=== PATIENT | male | born 1985 | race American Indian/Alaskan Native ===

== ENCOUNTER 2020-01-16 20:06 | Emergency (ER) | payer SELFPAY ==
[2020-01-16 21:38] LABS: Basophils # (Auto) 0.1 K/mm3 (0.0-0.1); Basophils % (Auto) 0.5 % (0.0-1.8); Eosinophils # (Auto) 0.2 K/mm3 (0.0-0.4); Eosinophils % (Auto) 1.4 % (0.0-4.3); Hematocrit 46.2 % (35.5-45.6); Hemoglobin 14.9 gm/dl (11.8-15.2); Lymphocytes % (Auto) 17.8 % (13.4-35.0); Mean Corpuscular HGB Conc 32 % (32-34); Mean Corpuscular Volume 82 fl (84-94); Monocytes # (Auto) 0.9 K/mm3 (0.0-0.8); Monocytes % (Auto) 8.1 % (0.0-7.3); Platelet Count 366 K/mm3 (140-440); Red Blood Count 5.65 M/mm3 (3.65-5.03); Red Cell Distribution Width 14.4 % (13.2-15.2)
[2020-01-16 21:51] LABS: Alanine Aminotransferase 35 units/L (7-56); Albumin 3.9 g/dL (3.9-5); BUN/Creatinine Ratio 8; Blood Urea Nitrogen 8 mg/dL (9-20); Calcium 9.6 mg/dL (8.4-10.2); Hemolysis Index 21
[2020-01-16] MEDS ORDERED: CLINDAMYCIN 600 MG/50 mL 600 MG/50 ML BAG IV ONE (22:32)
[2020-01-16] MEDS ORDERED: oxyCODONE /ACETAMINOPHEN 5-325MG TAB PO ONE (22:32)
[2020-01-16] MEDS ORDERED: SODIUM CHLORIDE 0.9% IRR 500 ML BOTTLE IR ONE (22:45)
[2020-01-16] MEDS ORDERED: SODIUM CHLORIDE 0.9% 1000 ML 1,000 ML IV ONE (22:55)
--- NOTE | 2020-01-16 23:23 | Emergency Department Report ---
Abscess Boil HPI - HPI Chief Complaint: Skin/Abscess/Foreign Body Stated Complaint: FACIAL SWELLING, PAIN Time Seen by Provider: 01/16/20 22:31 Duration: 2 Days Location: Other Severity: Moderate (Face) History: Yes Pain, No Fever, No Purulent Drainage, No Numbness, No Foreign Body, No Previous History, No Insect Bite HPI: 34-year-old -[place] male presents to the emergency room for left- sided facial swelling that started with a small pimple and then has grown in 2 a large size bump with redness and irritated for about 1-1/2 days. Patient states he thinks he was bitten by an insect. Patient reports that it is painful. Patient reports a past medical history of HIV. It was noted that patient had a low-grade temperature of 99.0 and comes in tachycardic at 122. Patient has no other complaints. Home Medications: Previous Rx's Medication Instructions Recorded Last Taken Type DOXYCYCLINE Hyclate [Vibramycin 100 mg PO BID #14 capsule 02/17/15 Unknown Rx CAP] Amoxicillin [Amoxicillin TAB] 875 mg PO BID 10 Days #20 tablet 01/16/20 Unknown Rx Clindamycin [Clindamycin CAP] 300 mg PO Q8H 10 Days #30 cap 01/16/20 Unknown Rx traMADoL [Ultram 50 MG tab] 50 mg PO Q6HR PRN #12 tablet 01/16/20 Unknown Rx Allergies/Adverse Reactions: Allergies Allergy/AdvReac Type Severity Reaction Status Date / Time No Known Allergies Allergy Unverified 02/17/15 02:26 ED Review of Systems ROS: Stated complaint: FACIAL SWELLING, PAIN Other details as noted in HPI Comment: All other systems reviewed and negative ED Past Medical Hx - Past Medical History Previous Medical History?: Yes Additional medical history: HIV - Surgical History Past Surgical History?: No - Social History Smoking Status: Current Every Day Smoker Substance Use Type: Alcohol, Cocaine, Heroin, Marijuana, Methamphetamines - Medications Home Medications: Home Medications Medication Instructions Recorded Confirmed Last Taken Type DOXYCYCLINE Hyclate [Vibramycin 100 mg PO BID #14 capsule 02/17/15 Unknown Rx CAP] Amoxicillin [Amoxicillin TAB] 875 mg PO BID 10 Days #20 tablet 01/16/20 Unknown Rx Clindamycin [Clindamycin CAP] 300 mg PO Q8H 10 Days #30 cap 01/16/20 Unknown Rx traMADoL [Ultram 50 MG tab] 50 mg PO Q6HR PRN #12 tablet 01/16/20 Unknown Rx ED Abscess Boil Physical Exam - Exam General: Vital signs noted. No distress. Alert and acting appropriately. Left side facial involving the left lip left cheek and portion of the left chin. Tenderness to palpate erythematous edematous. Size: >5 cm Exam: Yes Tenderness, Yes Surrounding Cellulites/Erythema, Yes Normal Neurologic Exam, Yes Normal Circulation, No Fluctuance, No Lymphangitis, No Crepitation, No Heart Murmur ED Course Vital Signs 01/16/20 01/16/20 20:47 20:55 Temperature 99.0 F Pulse Rate 122 H Respiratory 18 Rate Blood Pressure 134/86 O2 Sat by Pulse 100 Oximetry Critical care attestation.: If time is entered above; I have spent that time in minutes in the direct care of this critically ill patient, excluding procedure time. ED Medical Decision Making - Lab Data Result diagrams: 01/16/20 21:25 01/16/20 21:25 - Medical Decision Making 34-year-old -[place] male presents to the emergency room for left-sided facial swelling that started with a small pimple and then has grown in 2 a large size bump with redness and irritated for about 1-1/2 days. Patient states he thinks he was bitten by an insect. Patient reports that it is painful. Patient reports a past medical history of HIV. It was noted that patient had a low- grade temperature of 99.0 and comes in tachycardic at 122. Patient has no other complaints. Spoke with Dr. talbert as well as he evaluated the patient. Dr. talbert he agrees with my plan of basic labs with a lactic acid. IV normal saline with clindamycin 600 mg IV. Pain medication. Will discharge patient home on cli ndamycin 300 mg every 8 hours for 10 days as well as amoxicillin 875 mg twice daily for 10 days. Patient is to follow-up with a primary care provider I will refer patient to Dr. Brynn Kline or [facility]. ED Disposition Clinical Impression: Abscess of face, HIV (human immunodeficiency virus infection) Disposition: TO HOME OR SELFCARE Is pt being admited?: No Does the pt Need Aspirin: No Condition: Stable Instructions: Abscess (ED) Additional Instructions: Complete your antibiotics as prescribed. Pain medication as needed. Increase your fluid intake. Tylenol or ibuprofen for fever. Follow-up with a primary care provider I have listed several below for your convenience. Return back to the emergency room with worsening symptoms Prescriptions: Amoxicillin [Amoxicillin TAB] 875 mg PO BID 10 Days #20 tablet Clindamycin [Clindamycin CAP] 300 mg PO Q8H 10 Days #30 cap traMADoL [Ultram 50 MG tab] 50 mg PO Q6HR PRN #12 tablet PRN Reason: Pain [facility] STEVE [Primary Care Provider] - 3-5 Days FIDEL GERBER MD [Staff Physician] - 3-5 Days [facility] [Provider Group] - 3-5 Days Forms: Work/School Release Form(ED)
[2020-01-17 00:10] VITALS: BP 114/87
== END 2020-01-17 00:10 | disposition home or self-care (01) ==
LOC: ED 20:06
DX: L02.01 Cutaneous abscess of face (principal); B20 Human immunodeficiency virus [HIV] disease; F17.200 Nicotine dependence, unspecified, uncomplicated; F12.90 Cannabis use, unspecified, uncomplicated; F14.90 Cocaine use, unspecified, uncomplicated; F11.90 Opioid use, unspecified, uncomplicated; F15.90 Other stimulant use, unspecified, uncomplicated; Z79.899 Other long term (current) drug therapy
CPT/HCPCS: 36415; 80053; 82140; 85025; 87040; 96365; 99283; J7030

== ENCOUNTER 2021-05-13 10:26 | Emergency (ER) | payer SELFPAY ==
[2021-05-13 10:53] VITALS: BP 149/106
[2021-05-13] MEDS ORDERED: HYDROcodone/ACETAMINOPHEN 5-325 MG TAB PO ONE (11:32)
[2021-05-13] MEDS ORDERED: LIDOCAINE (1%) 10 MG/1 ML VIAL 20 ML MDV INFILTRATI ONE (11:32)
--- NOTE | 2021-05-13 11:33 | Emergency Department Report ---
ED General Adult HPI - General Chief complaint: Extremity Injury, Upper Stated complaint: LT HAND FINGER INFECTED Time Seen by Provider: 05/13/21 11:17 Source: patient Mode of arrival: Ambulatory Limitations: No Limitations - History of Present Illness Initial comments: 35-year-old -[place] male patient presents with complaints of left middle finger pain and swelling x1 week. He denies any specific injuries or fever/chills/sweats. No difficulty moving the finger per patient. He does admit to being a nail biter. No past medical history per patient. Patient rates his pain as a 10/10 in severity - Related Data Previous Rx's Medication Instructions Recorded Last Taken Type DOXYCYCLINE Hyclate [Vibramycin 100 mg PO BID #14 capsule 02/17/15 Unknown Rx CAP] Amoxicillin [Amoxicillin TAB] 875 mg PO BID 10 Days #20 tablet 01/16/20 Unknown Rx Clindamycin [Clindamycin CAP] 300 mg PO Q8H 10 Days #30 cap 01/16/20 Unknown Rx traMADoL [Ultram 50 MG tab] 50 mg PO Q6HR PRN #12 tablet 01/16/20 Unknown Rx Ibuprofen [Motrin 800 MG tab] 800 mg PO Q8HR PRN #20 tablet 05/13/21 Unknown Rx Mupirocin [Bactroban 2% OINT] 1 applic TP TID 10 Days #1 tube 05/13/21 Unknown Rx Sulfamethoxazole/Trimethoprim 1 each PO BID 10 Days #20 tablet 05/13/21 Unknown Rx [Bactrim DS TAB] Allergies Allergy/AdvReac Type Severity Reaction Status Date / Time No Known Allergies Allergy Verified 05/13/21 10:54 ED Review of Systems ROS: Stated complaint: LT HAND FINGER INFECTED Other details as noted in HPI Constitutional: denies: chills, diaphoresis, fever, weakness Musculoskeletal: other (Swelling of the finger) Skin: change in color Neurological: denies: numbness, paresthesias ED Past Medical Hx - Past Medical History Hx HIV: Yes Additional medical history: HIV - Social History Smoking Status: Never Smoker Substance Use Type: None - Medications Home Medications: Home Medications Medication Instructions Recorded Confirmed Last Taken Type DOXYCYCLINE Hyclate [Vibramycin 100 mg PO BID #14 capsule 02/17/15 Unknown Rx CAP] Amoxicillin [Amoxicillin TAB] 875 mg PO BID 10 Days #20 tablet 01/16/20 Unknown Rx Clindamycin [Clindamycin CAP] 300 mg PO Q8H 10 Days #30 cap 01/16/20 Unknown Rx traMADoL [Ultram 50 MG tab] 50 mg PO Q6HR PRN #12 tablet 01/16/20 Unknown Rx Ibuprofen [Motrin 800 MG tab] 800 mg PO Q8HR PRN #20 tablet 05/13/21 Unknown Rx Mupirocin [Bactroban 2% OINT] 1 applic TP TID 10 Days #1 tube 05/13/21 Unknown Rx Sulfamethoxazole/Trimethoprim 1 each PO BID 10 Days #20 tablet 05/13/21 Unknown Rx [Bactrim DS TAB] ED Physical Exam - General Limitations: No Limitations General appearance: alert, in no apparent distress - Head Head exam: Present: atraumatic, normocephalic - Eye Eye exam: Absent: scleral icterus - Respiratory Respiratory exam: Absent: respiratory distress - Extremities Exam Extremities exam: Present: other (Paronychia noted to distal aspect of left third digit with moderate swelling; normal perfusion and sensation and range of motion of the fingers noted) - Neurological Exam Neurological exam: Present: alert, oriented X3 - Psychiatric Psychiatric exam: Present: normal affect, normal mood - Skin Skin exam: Present: warm, dry, intact. Absent: rash ED Course Vital Signs 05/13/21 10:52 Temperature 98.0 F Pulse Rate 105 H Respiratory 17 Rate Blood Pressure 149/106 O2 Sat by Pulse 99 Oximetry - I & D Finger Type of Procedure: Simple Site: Left third digit Blade Size: 11 I & D Procedure: betadine prep, sterile drapes applied, sterile dressing applied Progress: 8 cc of lidocaine 1% without epi used to digitally block the left third digit. Mild purulent drainage obtained from wound. Patient tolerated procedure well without any immediate complications. He has full range of motion and normal perfusion of the finger post procedure ED Medical Decision Making - Medical Decision Making 35-year-old -[place] male patient presents with complaints of left middle finger pain and swelling x1 week. He denies any specific injuries or fever/chills/sweats. No difficulty moving the finger per patient. He does admit to being a nail biter. No past medical history per patient. Patient rates his pain as a 10/10 in severity Incision and drainage of paronychia performed. Patient tolerated procedure well without any immediate complications. Heart rate now 89 upon repeat. His vitals are normal, he is well-appearing, he is stable for discharge home. Discussed wound care and signs and symptoms that should prompt immediate return to the emergency department in detail patient verbalized understanding. Prescription for Bactrim and mupirocin given. Patient to follow-up with his primary care doctor in 3 to 5 days. Critical care attestation.: If time is entered above; I have spent that time in minutes in the direct care of this critically ill patient, excluding procedure time. ED Disposition Clinical Impression: Paronychia of finger Qualifiers: Laterality: left Qualified Code(s): L03.012 - Cellulitis of left finger Disposition: HOME / SELF CARE / HOMELESS Is pt being admited?: No Condition: Stable Instructions: Paronychia Prescriptions: Sulfamethoxazole/Trimethoprim [Bactrim DS TAB] 1 each PO BID 10 Days #20 tablet Mupirocin [Bactroban 2% OINT] 1 applic TP TID 10 Days #1 tube Ibuprofen [Motrin 800 MG tab] 800 mg PO Q8HR PRN #20 tablet PRN Reason: pain Referrals: [facility] [Provider Group] - 3-5 Days Forms: Work/School Release Form(ED)
== END 2021-05-13 14:09 | disposition home or self-care (01) ==
LOC: ED 10:26
DX: L03.012 Cellulitis of left finger (principal); Z79.899 Other long term (current) drug therapy
CPT/HCPCS: 99282

== ENCOUNTER 2022-03-26 06:08 | Emergency (ER) | payer SELFPAY ==
--- NOTE | 2022-03-26 13:06 | Emergency Department Report ---
HPI - General Chief Complaint: Psych Time Seen by Provider: 03/26/22 12:55 - HPI HPI: Room 12 The patient is a 36-year-old male present with chief complaint of suicidal ideation. Patient reportedly told staff that he was homeless and has been off his bipolar medication for the past week. Patient admitted to having suicidal ideation. Patient denies any active attempts at harming himself. ED Past Medical Hx - Past Medical History Hx Psychiatric Treatment: Yes (Bipolar disorder) Hx HIV: Yes (Unknown CD4 count) Additional medical history: HIV - Surgical History Past Surgical History?: No Additional Surgical History: urethra sx - Family History Family history: no significant - Social History Smoking Status: Never Smoker Substance Use Type: Alcohol (Rarely), Marijuana ED Review of Systems ROS: Stated complaint: MH Other details as noted in HPI Constitutional: no symptoms reported Eyes: denies: eye pain ENT: denies: throat pain Respiratory: no symptoms reported Cardiovascular: denies: chest pain Endocrine: no symptoms reported Gastrointestinal: denies: abdominal pain Genitourinary: denies: dysuria Musculoskeletal: denies: back pain Psychiatric: suicidal thoughts Physical Exam - Physical Exam Vital Signs: Vital Signs 03/26/22 08:19 Temperature 98.9 F Pulse Rate 81 Respiratory 14 Rate Blood Pressure 127/86 O2 Sat by Pulse 97 Oximetry Physical Exam: GENERAL: The patient is thin well-developed well-nourished male sitting in chair with barely audible speech. [] HEENT: Normocephalic. Atraumatic. Extraocular motions are intact. Patient has moist mucous membranes. NECK: Supple. Trachea midline CHEST/LUNGS: Clear to auscultation. There is no respiratory distress noted. HEART/CARDIOVASCULAR: Regular. There is no tachycardia. There is no gallop rub or murmur. ABDOMEN: Abdomen is soft, nontender. Patient has normal bowel sounds. There is no abdominal distention. SKIN: There is no rash. There is no edema. There is no diaphoresis. NEURO: The patient is awake, alert, and oriented. The patient is cooperative. The patient has no focal neurologic deficits. The patient has normal speech. GCS 15 MUSCULOSKELETAL: There is no evidence of acute injury. ED Course Vital Signs 03/26/22 08:19 Temperature 98.9 F Pulse Rate 81 Respiratory 14 Rate Blood Pressure 127/86 O2 Sat by Pulse 97 Oximetry ED Medical Decision Making - Lab Data Result diagrams: 03/26/22 13:58 03/26/22 13:58 Laboratory Tests 03/26/22 03/26/22 03/26/22 13:05 13:05 13:58 WBC 6.9 RBC 4.88 Hgb 13.2 Hct 38.7 MCV 79 L MCH 27 L MCHC 34 RDW 15.0 Plt Count 292 Lymph % (Auto) 22.0 [place] % (Auto) 12.5 H Eos % (Auto) 0.6 Baso % (Auto) 1.2 Lymph # (Auto) 1.5 [place] # (Auto) 0.9 H Eos # (Auto) 0.0 Baso # (Auto) 0.1 Seg Neutrophils % 63.7 Seg Neutrophils # 4.4 Sodium Potassium Chloride Carbon Dioxide Anion Gap BUN Creatinine Estimated GFR BUN/Creatinine Ratio Glucose Calcium Total Bilirubin AST ALT Alkaline Phosphatase Total Protein Albumin Albumin/Globulin Ratio Urine Color Dsetiny Urine Turbidity Slightly-cloudy Urine pH 5.0 Ur Specific [place] 1.030 Urine Protein >500 Urine Glucose (UA) Neg Urine Ketones Tr Urine Blood Neg Urine Nitrite Neg Urine Bilirubin Neg Urine Urobilinogen 4.0 Ur Leukocyte Esterase Tr Urine WBC (Auto) 30.0 H Urine RBC (Auto) 7.0 U Epithel Cells (Auto) 3.0 Hyaline Casts 9 Urine Mucus 2+ Salicylates Urine Opiates Screen Negative Urine Methadone Screen Negative Acetaminophen Ur Barbiturates Screen Negative Ur Phencyclidine Scrn Negative Ur Amphetamines Screen Positive U Benzodiazepines Scrn Negative Urine Cocaine Screen Negative U Marijuana (THC) Screen Positive Drugs of Abuse Note Disclamer Plasma/Serum Alcohol 03/26/22 03/26/22 03/26/22 13:58 13:58 13:58 WBC RBC Hgb Hct MCV MCH MCHC RDW Plt Count Lymph % (Auto) [place] % (Auto) Eos % (Auto) Baso % (Auto) Lymph # (Auto) [place] # (Auto) Eos # (Auto) Baso # (Auto) Seg Neutrophils % Seg Neutrophils # Sodium 139 Potassium 3.9 Chloride 100.8 Carbon Dioxide 27 Anion Gap 15 BUN 11 Creatinine 1.3 Estimated GFR > 60 BUN/Creatinine Ratio 8 Glucose 89 Calcium 9.3 Total Bilirubin 1.10 AST 94 H ALT 26 Alkaline Phosphatase 105 Total Protein 8.7 H Albumin 4.4 Albumin/Globulin Ratio 1.0 Urine Color Urine Turbidity Urine pH Ur Specific [place] Urine Protein Urine Glucose (UA) Urine Ketones Urine Blood Urine Nitrite Urine Bilirubin Urine Urobilinogen Ur Leukocyte Esterase Urine WBC (Auto) Urine RBC (Auto) U Epithel Cells (Auto) Hyaline Casts Urine Mucus Salicylates < 0.3 L Urine Opiates Screen Urine Methadone Screen Acetaminophen 5.0 L Ur Barbiturates Screen Ur Phencyclidine Scrn Ur Amphetamines Screen U Benzodiazepines Scrn Urine Cocaine Screen U Marijuana (THC) Screen Drugs of Abuse Note Plasma/Serum Alcohol 03/26/22 13:58 WBC RBC Hgb Hct MCV MCH MCHC RDW Plt Count Lymph % (Auto) [place] % (Auto) Eos % (Auto) Baso % (Auto) Lymph # (Auto) [place] # (Auto) Eos # (Auto) Baso # (Auto) Seg Neutrophils % Seg Neutrophils # Sodium Potassium Chloride Carbon Dioxide Anion Gap BUN Creatinine Estimated GFR BUN/Creatinine Ratio Glucose Calcium Total Bilirubin AST ALT Alkaline Phosphatase Total Protein Albumin Albumin/Globulin Ratio Urine Color Urine Turbidity Urine pH Ur Specific [place] Urine Protein Urine Glucose (UA) Urine Ketones Urine Blood Urine Nitrite Urine Bilirubin Urine Urobilinogen Ur Leukocyte Esterase Urine WBC (Auto) Urine RBC (Auto) U Epithel Cells (Auto) Hyaline Casts Urine Mucus Salicylates Urine Opiates Screen Urine Methadone Screen Acetaminophen Ur Barbiturates Screen Ur Phencyclidine Scrn Ur Amphetamines Screen U Benzodiazepines Scrn Urine Cocaine Screen U Marijuana (THC) Screen Drugs of Abuse Note Plasma/Serum Alcohol < 0.01 - Differential Diagnosis Suicidal ideation Critical care attestation.: If time is entered above; I have spent that time in minutes in the direct care of this critically ill patient, excluding procedure time. ED Disposition Clinical Impression: Suicidal ideation Disposition: 30 STILL A PATIENT Is pt being admited?: No Does the pt Need Aspirin: No Condition: Stable
[2022-03-26 13:20] VITALS: BP 140/78
[2022-03-26 13:32] LABS: Bilirubin,Urine NEG (Negative); Blood,Urine NEG (Negative); Color,Urine Amber (Yellow)
[2022-03-26 13:36] LABS: Hyaline Casts,Urine 9 /LPF; Mucus,Urine 2+ /HPF
[2022-03-26 13:38] LABS: Protein,Urine >500 mg/dL (Negative)
[2022-03-26 14:04] LABS: Basophils # (Auto) 0.1 K/mm3 (0.0-0.1); Basophils % (Auto) 1.2 % (0.0-1.8); Eosinophils % (Auto) 0.6 % (0.0-4.3); Hematocrit 38.7 % (35.5-45.6); Hemoglobin 13.2 gm/dl (11.8-15.2); Lymphocytes # (Auto) 1.5 K/mm3 (1.2-5.4); Mean Corpuscular HGB Conc 34 % (32-34); Mean Corpuscular Volume 79 fl (84-94); Monocytes # (Auto) 0.9 K/mm3 (0.0-0.8); Monocytes % (Auto) 12.5 % (0.0-7.3); Platelet Count 292 K/mm3 (140-440); Red Blood Count 4.88 M/mm3 (3.65-5.03)
[2022-03-26 14:06] LABS: Benzodiazepines Screen,Urine Negative; Cocaine Screen,Urine Negative; Methadone Screen,Urine Negative; Opiate Screen,Urine Negative
[2022-03-26 14:11] LABS: Amphetamine Screen,Urine Positive; Cannabinoid Screen,Urine Positive
[2022-03-26 14:29] LABS: Alanine Aminotransferase 26 units/L (7-56); Albumin 4.4 g/dL (3.9-5); BUN/Creatinine Ratio 8; Blood Urea Nitrogen 11 mg/dL (9-20); Calcium 9.3 mg/dL (8.4-10.2); Hemolysis Index 1
--- NOTE | 2022-03-26 17:37 | Consultation ---
History of Present Illness - Reason for Consult Consult date: 03/26/22 Reason for consult: MHE - History of Present Psychiatric Illness History of Present Illness - Reason for Consult Consult date: 03/26/22 Reason for consult: MHE - Reason for Consult Consult date: 03/26/22 Reason for consult: Substance Abuse - Chief complaint: " I am a spoilt little brat" - History of Present Psychiatric Illness 36 year omarvin was seen today in the ER. Patient states that he came here for " No reason" and that it was because he is a "spoilt little brat" Patient states that he told his mum that he was doing meth and marijuana and mum was upset. Patient states he has been using drugs for the past year. Patient states that he is so sorry " i will never touch drugs again" Patient states that he doesn't want t disappoint his mom. Patient denies any SI/HI/AVH at this time. Patient will be cleared from psych stand point and 1013 rescinded. PAST PSYCHIATRIC HISTORY: Diagnoses: Substance abuse Suicide attempts or Self-harm behavior: No Prior psychiatric hospitalizations: Denies Substance Abuse history: Yes Previous psychiatric medications tried: Denies Outpatient treatment: No PAST MEDICAL HISTORY: Family Psychiatric History None reported or documented SOCIAL HISTORY Marital Status: Single Living Arrangements: With Mum Employment Status: unemployed Access to guns/weapons: Denies Education: Some College History of Abuse: Denies Legal History: REVIEW OF SYSTEMS Constitutional: Negative for weight loss ENT: Negative for stridor Respiratory: Negative for cough or hemoptysis All other systems reviewed and are negative MENTAL STATUS General Appearance and Behavior: age appropriate, good eye contact, cooperative with questioning and polite Cooperation: Cooperative Psychomotor Behavior: within normal limits Mood: OK Affect and affective range: Congruent with stated mood Thought Process: Fluent/Logical and Goal-directed Thought Content: Within reality Speech: Normal volume and Regular rate and rhythm Intellectual Functioning Average Suicidal Ideation: Denies SI Homicidal Ideation: Denies HI Impulse Control: intact Insight and Judgment: normal insight and judgment Memory: Normal Attention: Normal Orientation: alert and oriented RECOMMENDATIONS MEDICAL: Per primary team DELIRIUM PRECAUTIONS: Please re-orient patient frequently, keep lights on during the day, and minimize benzodiazepines and opiates as these medications could worsen patient's confusion. ANTHROPOLOGY INSTRUCTOR: /Defer to primary team DISPOSITION: Per primary team, no indication for acute inpatient psychiatric hospitalization at this time LEGAL STATUS: FOLLOW-UP: Will sign off The patient agreed on the treatment plan, understood the risk, benefit, alternative treatment, potential consequence of no treatment, and gave informed consent. I have reviewed this treatment plan, including potential risks and benefits of medications, with the patient and/or family members and relevant hospital providers. Please contact with any questions and/or concerns. Medications and Allergies Allergies Allergy/AdvReac Type Severity Reaction Status Date / Time No Known Allergies Allergy Verified 05/13/21 10:54 Mental Status Exam - Vital signs Last Vital Signs Temp 99.1 F 03/26/22 13:07 Pulse 98 H 03/26/22 13:07 Resp 16 03/26/22 13:07 BP 140/78 03/26/22 13:07 Pulse Ox 100 03/26/22 13:07 Results Result Diagrams: 03/26/22 13:58 03/26/22 13:58 Abnormal lab results 03/26/22 03/26/22 03/26/22 Range/Units 13:05 13:58 13:58 MCV 79 L (84-94) fl MCH 27 L (28-32) pg [place] % (Auto) 12.5 H (0.0-7.3) % [place] # (Auto) 0.9 H (0.0-0.8) K/mm3 AST 94 H (5-40) units/L Total Protein 8.7 H (6.3-8.2) g/dL Urine WBC (Auto) 30.0 H (0.0-6.0) /HPF Salicylates (2.8-20.0) mg/dL Acetaminophen (10.0-30.0) ug/mL 03/26/22 03/26/22 Range/Units 13:58 13:58 MCV (84-94) fl MCH (28-32) pg [place] % (Auto) (0.0-7.3) % [place] # (Auto) (0.0-0.8) K/mm3 AST (5-40) units/L Total Protein (6.3-8.2) g/dL Urine WBC (Auto) (0.0-6.0) /HPF Salicylates < 0.3 L (2.8-20.0) mg/dL Acetaminophen 5.0 L (10.0-30.0) ug/mL All other labs normal.
--- NOTE | 2022-03-27 10:44 | Progress Note ---
Subjective - Reason for Consult Reason for consult: MHE - Chief Complaint Chief complaint: Patient seen this morning. Denies SI/HI/AVH. patient will be discharged. Mental Status Exam - Vital signs Last Vital Signs Temp 99.1 F 03/26/22 13:07 Pulse 98 H 03/26/22 13:07 Resp 16 03/26/22 13:07 BP 140/78 03/26/22 13:07 Pulse Ox 100 03/26/22 20:13
--- NOTE | 2022-03-27 12:14 | Emergency Department Report ---
Blank Doc - Documentation Documentation: Chart reviewed. Patient has been cleared by mental health professional for di scharge after denial of continued suicidal homicidal ideation. As per medical record no meds have been recommended.
== END 2022-03-27 13:07 | disposition home or self-care (01) ==
LOC: ED 06:08
DX: R45.851 Suicidal ideations (principal); F31.9 Bipolar disorder, unspecified; Z21 Asymptomatic human immunodeficiency virus [HIV] infection status; Z20.822 Contact with and (suspected) exposure to COVID-19
CPT/HCPCS: 36415; 80053; 80307; 81001; 85025; 87086; 99284; U0003; 80320; G0480